=== PATIENT | female | born 1980 | race Caucasian/White ===

== ENCOUNTER → 2017-08-07 | Outpatient (CLI) | payer BC ==
[2017-08-07 08:58] LABS: BASOPHILS % (AUTO) 0.9 % (0.2-1.0); EOSINOPHILS # (AUTO) 0.1 x10^3/uL (0.0-0.2); EOSINOPHILS % (AUTO) 2.1 % (0.9-2.9); HEMATOCRIT 42.2 % (36.0-47.0); HEMOGLOBIN 14.7 g/dL (12.0-16.0); LYMPHOCYTES # (AUTO) 1.6 X10^3/uL (1.3-2.9); LYMPHOCYTES % (AUTO) 28.9 % (21.0-51.0); MEAN CORPUSCULAR HEMOGLOBIN 32.4 pg (27.0-34.0); MEAN CORPUSCULAR HGB CONC 34.9 g/dL (33.0-35.0); MEAN CORPUSCULAR VOLUME 92.7 fL (80.0-100.0); MEAN PLATELET VOLUME 8.1 fL (7.4-11.0); MONOCYTES # (AUTO) 0.3 x10^3/uL (0.3-0.8); MONOCYTES % (AUTO) 6.2 % (0.0-13.0); NEUTROPHILS # (AUTO) 3.4 x10^3/uL (2.2-4.8); NEUTROPHILS % (AUTO) 61.9 % (42.0-75.0); PLATELET COUNT 285 X10^3/uL (150.0-450.0); RED BLOOD COUNT 4.55 X10^6/uL (3.5-5.4); RED CELL DISTRIBUTION WIDTH 12.4 % (11.6-16.5); RETICULOCYTE % 1.23 % (0.8-2.2); WHITE BLOOD COUNT 5.6 X10^3/uL (3.6-10.0)
[2017-08-07 09:11] LABS: ALANINE AMINOTRANSFERASE 23 Units/L (12-78); ALBUMIN 4.4 g/dL (3.4-5.0); ALKALINE PHOSPHATASE 53 Units/L (46-116); AMYLASE 41 Units/L (25-115); ASPARTATE AMINO TRANSFERASE 16 Units/L (15-37); BLOOD UREA NITROGEN 9 mg/dL (7-18); CALCIUM 9.1 mg/dL (8.5-10.1); CHLORIDE 102 mmol/L (98-107); CREATININE 0.76 mg/dL (0.55-1.02); LIPASE 146 Units/L (73-393); SODIUM 140 mmol/L (136-145); TOTAL PROTEIN 7.8 g/dL (6.4-8.2); eGFR BLACK RACES > 60 (>60); eGFR NON BLACK RACES > 60 (>60)
[2017-08-11 06:23] LABS: METHYLMALONIC ACID 0.12 umol/L (0.00-0.40)
== END | disposition home or self-care (01) ==
LOC: LAB 08:25
PROVIDERS: ATTEND Nurse Practitioner Family
DX: D64.89 Other specified anemias (principal); R10.84 Generalized abdominal pain
CPT/HCPCS: 36415; 80053; 82150; 82607; 82615; 82746; 83690; 83918; 85025; 85045; 86256; 86340

== ENCOUNTER 2017-10-08 07:13 | Day surgery (SDC) | payer BC ==
[2017-10-08] MEDS ORDERED: D5 LR 1000 ML 1,000 ML IV ONE (07:32)
[2017-10-08] MEDS ORDERED: XYLOCAINE 2 % (PLAIN) ONE (08:29)
[2017-10-08] MEDS ORDERED: ZOFRAN INJ 4 MG VIAL ONE (08:29)
[2017-10-08] MEDS ORDERED: DIPRIVAN VIAL 20 ML ONE (08:29)
[2017-10-08 10:16] VITALS: BP 113/58
== END 2017-10-08 09:05 | disposition home or self-care (01) ==
LOC: SURG1 07:13
PROVIDERS: ATTEND Internal Medicine Gastroenterology
PROC: 0DB88ZX Excision of Small Intestine, Via Natural or Artificial Opening Endoscopic, Diagnostic (ICD-10-PCS; principal; 2017-10-08 07:30)
PROC: 0DJ08ZZ Inspection of Upper Intestinal Tract, Via Natural or Artificial Opening Endoscopic (ICD-10-PCS; principal; 2017-10-08 07:30)
PROC: 0DB68ZX Excision of Stomach, Via Natural or Artificial Opening Endoscopic, Diagnostic (ICD-10-PCS; principal; 2017-10-08 07:30)
DX: R10.13 Epigastric pain (principal); R11.0 Nausea; R19.7 Diarrhea, unspecified; Z79.1 Long term (current) use of non-steroidal anti-inflammatories (NSAID); K29.60 Other gastritis without bleeding; K20.8 Other esophagitis; R10.84 Generalized abdominal pain
CPT/HCPCS: A4217; J2001; J2405; J3490; J7120

== ENCOUNTER 2025-04-01 12:08 | Observation (INO) ==
[2025-04-01 12:33] VITALS: BMI 22.4
--- NOTE | 2025-04-01 12:36 | DR.FBACK ---
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 States pain starts at left buttock, radiates down left leg and left foot. Left foot feels numb, numbness radiates up to left calf. Pt states she has hx of herniated disk and has had L4 laminectomy with recent steroid injection. Self Treatment fo Chief Complaint: 0915 advil 600mg 1015 extended release tylenol x2 tabs 1100 toradol and kenalog COVID-19 Coronavirus risk:travel/contact w/high risk person: No Has patient experienced Coronavirus symptoms: No Source History Provided: Patient Mode of Arrival Mode of Arrival: Ambulatory Timing Onset of Chief Complaint: 04/01/25 PMH PMH Past Medical History: Yes Past Medical History: GERD Past Medical History Comment: vertigo, panic d/o, insomnia Past Surgical History: Yes Surgical History: , Cholecystectomy and Tonsillectomy Past Surgical History Comment: L4 laminectomy Family History History of Family Medical Conditions: Yes Social History Does patient currently use any type of tobacco product: No Have you used tobacco products in the last 12 months: No Type of Tobacco Use: None Does any household member use tobacco: No Alcohol Use: None Do you use any recreational Drugs:: No Lives With: Family Lives Where: Home Travel Risk Coronavirus risk:travel/contact w/high risk person: No Has patient experienced Coronavirus symptoms: No Infectious screening In the last 2 months have you had wt loss of >10#?: NO Have you had fever, night sweats or hemotysis?: No Have you traveled outside the country in the last 6 months?: No Isolation: Standard PE Vitals Vital Signs: Temp Pulse Resp BP Pulse Ox O2 Del Method 04/01/25 15:40 136/63 04/01/25 15:40 75 99 04/01/25 15:30 66 94 L 04/01/25 15:30 135/65 04/01/25 15:23 81 97 04/01/25 15:23 142/66 04/01/25 15:10 74 100 04/01/25 15:10 117/56 04/01/25 15:00 120/59 04/01/25 14:50 86 99 04/01/25 14:50 118/57 04/01/25 14:45 94 H 100 04/01/25 14:40 117/59 04/01/25 14:40 86 99 04/01/25 14:30 104/57 04/01/25 14:30 104/57 04/01/25 14:30 71 100 04/01/25 14:20 100/52 04/01/25 14:20 100/52 04/01/25 14:20 100/52 04/01/25 14:20 82 99 04/01/25 14:15 83 99 04/01/25 14:10 101/51 04/01/25 14:10 79 98 04/01/25 14:01 103/53 04/01/25 14:01 74 98 04/01/25 14:00 66 98 04/01/25 13:52 118/56 04/01/25 13:52 75 98 04/01/25 13:50 71 97 04/01/25 13:50 74 97 Room Air 04/01/25 13:43 20 04/01/25 13:13 14 04/01/25 12:09 98.2 F 75 14 134/63 96 Room Air ROR Labs Reviewed 04/01/25 12:43 04/01/25 12:43 Laboratory: WBC 9.3 X10^3/uL (3.6-10.0) 04/01/25 12:43 RBC 4.26 X10^6/uL (3.5-5.4) 04/01/25 12:43 Hgb 13.9 g/dL (12.0-16.0) 04/01/25 12:43 Hct 40.4 % (36.0-47.0) 04/01/25 12:43 MCV 94.8 fL (80.0-100.0) 04/01/25 12:43 MCH 32.5 pg (27.0-34.0) 04/01/25 12:43 MCHC 34.3 g/dL (33.0-35.0) 04/01/25 12:43 RDW 13.0 % (11.6-16.5) 04/01/25 12:43 Plt Count 262 X10^3/uL (150.0-450.0) 04/01/25 12:43 MPV 7.5 fL (7.4-11.0) 04/01/25 12:43 Neut % (Auto) 86.1 % (42.0-75.0) H 04/01/25 12:43 Lymph % (Auto) 9.0 % (21.0-51.0) L 04/01/25 12:43 [place] % (Auto) 4.6 % (0.0-13.0) 04/01/25 12:43 Eos % (Auto) 0.1 % (0.9-2.9) L 04/01/25 12:43 Baso % (Auto) 0.2 % (0.2-1.0) 04/01/25 12:43 Neut # (Auto) 8.0 x10^3/uL (2.2-4.8) H 04/01/25 12:43 Lymph # (Auto) 0.8 X10^3/uL (1.3-2.9) L 04/01/25 12:43 [place] # (Auto) 0.4 x10^3/uL (0.3-0.8) 04/01/25 12:43 Eos # (Auto) 0.0 x10^3/uL (0.0-0.2) 04/01/25 12:43 Baso # (Auto) 0.0 X10^3/uL (0.0-0.1) 04/01/25 12:43 Absolute Nucleated RBC 0.0 /100WBC 04/01/25 12:43 Sodium 138 mmol/L (136-145) 04/01/25 12:43 Corrected Sodium 138 mmol/L (136-145) 04/01/25 12:43 Potassium 3.8 mmol/L (3.5-5.1) 04/01/25 12:43 Chloride 101 mmol/L (98-107) 04/01/25 12:43 Carbon Dioxide 24.0 mmol/L (21-32) 04/01/25 12:43 BUN 9 mg/dL (7-18) 04/01/25 12:43 Creatinine 0.75 mg/dL (0.55-1.02) 04/01/25 12:43 Est GFR (MDRD) Af Amer > 60 (>60) 04/01/25 12:43 Est GFR (MDRD) Non-Af > 60 (>60) 04/01/25 12:43 Glucose 115 mg/dL (65-99) H 04/01/25 12:43 Calcium 8.9 mg/dL (8.5-10.1) 04/01/25 12:43 Corrected Calcium TNP 04/01/25 12:43 Total Bilirubin 0.60 mg/dL (0.2-1.0) 04/01/25 12:43 AST 12 Units/L (15-37) L 04/01/25 12:43 ALT 22 Units/L (12-78) 04/01/25 12:43 Alkaline Phosphatase 49 Units/L (46-116) 04/01/25 12:43 Total Protein 7.0 g/dL (6.4-8.2) 04/01/25 12:43 Albumin 4.1 g/dL (3.4-5.0) 04/01/25 12:43 Globulin 2.9 g/dL (2.5-4.5) 04/01/25 12:43 Albumin/Globulin Ratio 1.4 Ratio (1.1-2.1) 04/01/25 12:43 Opioid Opioid Risk Tool Age (Idris box if 16-45): No History of Preadolescent Sexual Abuse: No Total: 0 Total Score Risk Category: Low Risk Copyright: Keyon VILLALBA predicting aberrant behaviors Discharge Plan Diagnosis Discharge Problem: Lower back pain, Left leg weakness, Left leg paresthesias Discharge Plan Patient Disposition: ADMITTED INPATIENT Condition: Stable Orders to Discharge Patient Discharge Orders: Transfer (Routine); Ordered 04/01/25 Ordered By: GLORIA CUELLAR
[2025-04-01 12:53] LABS: BASOPHILS % (AUTO) 0.2 % (0.2-1.0); EOSINOPHILS % (AUTO) 0.1 % (0.9-2.9); HEMATOCRIT 40.4 % (36.0-47.0); HEMOGLOBIN 13.9 g/dL (12.0-16.0); LYMPHOCYTES # (AUTO) 0.8 X10^3/uL (1.3-2.9); MEAN CORPUSCULAR HEMOGLOBIN 32.5 pg (27.0-34.0); MEAN CORPUSCULAR HGB CONC 34.3 g/dL (33.0-35.0); MEAN CORPUSCULAR VOLUME 94.8 fL (80.0-100.0); MEAN PLATELET VOLUME 7.5 fL (7.4-11.0); MONOCYTES # (AUTO) 0.4 x10^3/uL (0.3-0.8); MONOCYTES % (AUTO) 4.6 % (0.0-13.0); NEUTROPHILS % (AUTO) 86.1 % (42.0-75.0); PLATELET COUNT 262 X10^3/uL (150.0-450.0); RED BLOOD COUNT 4.26 X10^6/uL (3.5-5.4); WHITE BLOOD COUNT 9.3 X10^3/uL (3.6-10.0)
[2025-04-01 13:05] LABS: ALANINE AMINOTRANSFERASE 22 Units/L (12-78); ALBUMIN 4.1 g/dL (3.4-5.0); ALKALINE PHOSPHATASE 49 Units/L (46-116); ASPARTATE AMINO TRANSFERASE 12 Units/L (15-37); BLOOD UREA NITROGEN 9 mg/dL (7-18); CALCIUM 8.9 mg/dL (8.5-10.1); CHLORIDE 101 mmol/L (98-107); COR NA(FOR HYPERGLY) 138 mmol/L (136-145); CREATININE 0.75 mg/dL (0.55-1.02); GLUCOSE 115 mg/dL (65-99); POTASSIUM 3.8 mmol/L (3.5-5.1); SODIUM 138 mmol/L (136-145); eGFR NON BLACK RACES > 60 (>60)
[2025-04-01] MEDS: ZOFRAN INJ 4 MG VIAL IVP ONE ×2 (13:07→15:28)
[2025-04-01] MEDS: DILAUDID INJ IVP ONE (13:13)
[2025-04-01] MEDS: SOLU-Medrol 125 MG VIAL IVP ONE (13:15)
[2025-04-01] MEDS: TORADOL 30 MG VIAL IVP ONE (13:22)
--- NOTE | 2025-04-01 13:31 | CT ---
EXAM: CT LUMBAR SPINE WITHOUT IV CONTRAST HISTORY: lower back pain; COMPARISON: None. TECHNIQUE: Axial CT images were obtained through the lumbar spine without IV contrast. Coronal and sagittal reformatted images were included. All CT scans at this facility use dose modulation, iterative reconstruction, and/or weight based dosing when appropriate to reduce radiation dose to as low as reasonably achievable. FINDINGS: Vertebral body heights are maintained. Mild levocurvature centered at L3. No acute lumbar spine fracture or subluxation. Mild multilevel degenerative disc disease and facet hypertrophy. No CT evidence of disc rupture or spinal canal stenosis. Partially visualized enlarged uterus in the retroperitoneum. IMPRESSION: 1. No evidence of acute fracture or subluxation. 2. Partially visualized enlarged uterus. THIS IS AN ELECTRONICALLY VERIFIED FINAL REPORT 04/01/2025 1:27 PM - Electronically signed by Codey Nick MD
[2025-04-01] MEDS: VALIUM INJ IVP ONE (13:54)
[2025-04-01] MEDS ORDERED: DILAUDID INJ IVP PRN (16:46)
[2025-04-01] MEDS ORDERED: ZOFRAN INJ 4 MG VIAL IVP PRN (16:46)
[2025-04-01] MEDS ORDERED: PHENERGAN INJ 25 MG IM PRN (17:05)
[2025-04-01 17:24] LABS: SERUM PREGNANCY TEST, QUAL NEGATIVE <10 mIU/mL
[2025-04-01] MEDS: NS 1,000 ML IV 1,000 ML IV SCH (17:27)
[2025-04-01] MEDS: PERCOCET TAB 5/325 MG PO PRN (17:53)
[2025-04-01] MEDS ORDERED: NEURONTIN CAP 300 MG ONE (19:55)
[2025-04-01] MEDS: VALIUM PO PRN (19:59)
[2025-04-01] MEDS: NEURONTIN CAP 300 MG PO SCH (20:01)
[2025-04-01] MEDS: TORADOL 30 MG VIAL IVP PRN (20:39)
[2025-04-01] MEDS: ZANAFLEX PO PRN (21:51)
[2025-04-02 06:13] LABS: BASOPHILS % (AUTO) 0.1 % (0.2-1.0); HEMATOCRIT 35.7 % (36.0-47.0); HEMOGLOBIN 12.4 g/dL (12.0-16.0); LYMPHOCYTES # (AUTO) 1.2 X10^3/uL (1.3-2.9); MEAN CORPUSCULAR HEMOGLOBIN 32.5 pg (27.0-34.0); MEAN CORPUSCULAR HGB CONC 34.6 g/dL (33.0-35.0); MEAN CORPUSCULAR VOLUME 93.7 fL (80.0-100.0); MEAN PLATELET VOLUME 7.8 fL (7.4-11.0); MONOCYTES # (AUTO) 0.7 x10^3/uL (0.3-0.8); MONOCYTES % (AUTO) 5.9 % (0.0-13.0); NEUTROPHILS # (AUTO) 9.8 x10^3/uL (2.2-4.8); PLATELET COUNT 240 X10^3/uL (150.0-450.0); RED BLOOD COUNT 3.81 X10^6/uL (3.5-5.4); RED CELL DISTRIBUTION WIDTH 12.7 % (11.6-16.5); WHITE BLOOD COUNT 11.7 X10^3/uL (3.6-10.0)
[2025-04-02 06:29] LABS: ALANINE AMINOTRANSFERASE 18 Units/L (12-78); ALBUMIN 3.1 g/dL (3.4-5.0); ALKALINE PHOSPHATASE 39 Units/L (46-116); ASPARTATE AMINO TRANSFERASE 8 Units/L (15-37); BLOOD UREA NITROGEN 8 mg/dL (7-18); CALCIUM 8.6 mg/dL (8.5-10.1); CARBON DIOXIDE 26.6 mmol/L (21-32); CHLORIDE 107 mmol/L (98-107); COR CA(FOR HYPOALB) 9.3 mg/dL (8.5-10.1); COR NA(FOR HYPERGLY) 139 mmol/L (136-145); CREATININE 0.59 mg/dL (0.55-1.02); GLUCOSE 113 mg/dL (65-99); POTASSIUM 4.5 mmol/L (3.5-5.1); SODIUM 139 mmol/L (136-145); TOTAL PROTEIN 5.7 g/dL (6.4-8.2); eGFR NON BLACK RACES > 60 (>60)
[2025-04-02] MEDS: PERCOCET TAB 5/325 MG PO ONE (11:13)
[2025-04-02] MEDS: NexIUM PO SCH (11:14)
[2025-04-02] MEDS: SOLU-Medrol 125 MG VIAL IVP SCH (11:14)
--- NOTE | 2025-04-02 11:23 | DR.H&P ---
H&P History & Physical for Day of: H&P Date: 04/02/25 Chief Complaint Chief Complaint: back pain History of Present Illness History of Present Illness: Ms. Berman is a 44-year-old female with a past medical history of chronic back pain status post laminectomy, GERD presented with worsening lower back pain, mostly on the left side with radiation down her leg. She states she was picking up a basket of laundry when she felt severe, sharp pain on her left side. She has a history of chronic back pain but it has not bothered her until recently. She did get a epidural with Dr. Contreras a week ago. She took some Tylenol, Advil at home with minimal relief. ER workup included CT lumbar which showed mild degenerative disc disease, no acute fracture or changes. She was given Dilaudid, Valium and Solu-Medrol with some pain relief but she was not able to ambulate and was admitted for further management. She was started on gabapentin 300 mg twice daily along with tizanidine and Valium. Dilaudid was not helping so it was switched over to oxycodone-apap as needed along with Toradol IV. She states her pain is slightly better than when she came in but it still very associating if she sits up or stands up to walk. She does report numbness and tingling down her left leg. Labs/imaging reviewed: - WBC 11.7 hemoglobin 12.4 platelet 240 potassium 4.5 creatinine 0.69 glucose 113 - CT lumbar reviewed Plan[facility]. Increase Percocet to 10 mg/325mg. Add Solu-Medrol 60 mg twice daily. Continue gabapentin. Continue Valium and tizanidine as needed. Continue Toradol IV as needed. MRI lumbar ordered for tomorrow. Replace electrolytes as per protocol. Monitor a.m. labs and imaging. Past Medical History Past Medical History: GERD Past Surgical History Surgical History: , Cholecystectomy, Tonsillectomy and Other Social History Does patient currently use any type of tobacco product: No Have you used tobacco products in the last 12 months: No Type of Tobacco Use: None Does any household member use tobacco: No Alcohol Use: None Drug Use: None Medications Home Medications: Home Medications Medication Instructions Recorded Confirmed Type esomeprazole magnesium 40 mg 40 mg PO QDAY 04/01/25 History capsule,delayed release Allergies Allergies Allergy/AdvReac Type Severity Reaction Status Date / Time meperidine (From Demerol) Allergy Unknown Nausea; Verified 04/01/25 12:33 Vomiting Labs 04/02/25 05:28 04/02/25 05:28 Labs: Laboratory WBC 11.7 X10^3/uL (3.6-10.0) H 04/02/25 05:28 RBC 3.81 X10^6/uL (3.5-5.4) 04/02/25 05:28 Hgb 12.4 g/dL (12.0-16.0) 04/02/25 05:28 Hct 35.7 % (36.0-47.0) L 04/02/25 05: MCV 93.7 fL (80.0-100.0) 04/02/25 05:28 MCH 32.5 pg (27.0-34.0) 04/02/25 05: MCHC 34.6 g/dL (33.0-35.0) 04/02/25 05:28 RDW 12.7 % (11.6-16.5) 04/02/25 05:28 Plt Count 240 X10^3/uL (150.0-450.0) 04/02/25 05:28 MPV 7.8 fL (7.4-11.0) 04/02/25 05:28 Neut % (Auto) 84.0 % (42.0-75.0) H 04/02/25 05: Lymph % (Auto) 10.0 % (21.0-51.0) L 04/02/25 05:28 [place] % (Auto) 5.9 % (0.0-13.0) 04/02/25 05:28 Eos % (Auto) 0.0 % (0.9-2.9) L 04/02/25 05:28 Baso % (Auto) 0.1 % (0.2-1.0) L 04/02/25 05:28 Neut # (Auto) 9.8 x10^3/uL (2.2-4.8) H 04/02/25 05:28 Lymph # (Auto) 1.2 X10^3/uL (1.3-2.9) L 04/02/25 05:28 [place] # (Auto) 0.7 x10^3/uL (0.3-0.8) 04/02/25 05:28 Eos # (Auto) 0.0 x10^3/uL (0.0-0.2) 04/02/25 05:28 Baso # (Auto) 0.0 X10^3/uL (0.0-0.1) 04/02/25 05:28 Absolute Nucleated RBC 0.0 /100WBC 04/02/25 05:28 Sodium 139 mmol/L (136-145) 04/02/25 05:28 Corrected Sodium 139 mmol/L (136-145) 04/02/25 05:28 Potassium 4.5 mmol/L (3.5-5.1) 04/02/25 05:28 Chloride 107 mmol/L (98-107) 04/02/25 05:28 Carbon Dioxide 26.6 mmol/L (21-32) 04/02/25 05:28 BUN 8 mg/dL (7-18) 04/02/25 05:28 Creatinine 0.59 mg/dL (0.55-1.02) 04/02/25 05:28 Est GFR (MDRD) Af Amer > 60 (>60) 04/02/25 05:28 Est GFR (MDRD) Non-Af > 60 (>60) 04/02/25 05:28 Glucose 113 mg/dL (65-99) H 04/02/25 05:28 Calcium 8.6 mg/dL (8.5-10.1) 04/02/25 05:28 Corrected Calcium 9.3 mg/dL (8.5-10.1) 04/02/25 05:28 Magnesium 2.0 mg/dL (2.0-2.9) 04/02/25 05:28 Total Bilirubin 0.40 mg/dL (0.2-1.0) 04/02/25 05:28 AST 8 Units/L (15-37) L 04/02/25 05:28 ALT 18 Units/L (12-78) 04/02/25 05:28 Alkaline Phosphatase 39 Units/L (46-116) L 04/02/25 05:28 Total Protein 5.7 g/dL (6.4-8.2) L 04/02/25 05:28 Albumin 3.1 g/dL (3.4-5.0) L 04/02/25 05:28 Globulin 2.6 g/dL (2.5-4.5) 04/02/25 05:28 Albumin/Globulin Ratio 1.2 Ratio (1.1-2.1) 04/02/25 05:28 HCG, Qual Negative <10 mIU/mL 04/01/25 12:43 Review of Systems Constitutional: No Symptoms Reported Eyes: No Symptoms Reported ENT: No Symptoms Reported Respiratory: No Symptoms Reported Cardiovascular: No Symptoms Reported Gastrointestinal: No Symptoms Reported Genitourinary: No Symptoms Reported Musculoskeletal: Back Pain and Leg Pain Skin: No Symptoms Reported Neurological: No Symptoms Reported Physical Exam Vital Signs: Vital Signs Temperature 98.4 F Temperature 98.4 F Temperature 97.8 F Pulse Rate [Right] 79 Pulse Rate [Right] 79 Pulse Rate [Right] 66 Respiratory Rate 18 Respiratory Rate 18 Respiratory Rate 18 Respiratory Rate 18 Respiratory Rate 18 Respiratory Rate 18 Respiratory Rate 18 Respiratory Rate 18 Respiratory Rate 18 Blood Pressure [Right Arm] 112/57 Blood Pressure [Right Arm] 112/57 Blood Pressure [Right Arm] 104/52 O2 Sat by Pulse Oximetry 97 O2 Sat by Pulse Oximetry 97 O2 Sat by Pulse Oximetry 97 Oriented: Normal Eyes: Normal Throat: Normal Respiratory: Clear Throughout Cardiovascular: Normal Auscultation: Bowel Sounds: Normal Palpation: Normal Tenderness: Normal Skin: Normal Musculoskeletal: Back:Lumbar, Back:Paraspinous and Motor Deficit Psychiatric: Normal Mood Description: Calm Affect: Normal Speech Pattern: Clear Assessment/Plan (1) Lower back pain: Status: Acute (2) Left leg paresthesias: Status: Acute (3) Spasm of muscle of lower back: Status: Acute (4) History of gastroesophageal reflux (GERD): Status: Chronic (5) Lumbar back pain with radiculopathy affecting left lower extremity: Status: Chronic Review H&P Reviewed: Yes Patient was examined?: Yes
[2025-04-02] MEDS: LIDODERM 5% PATCH TD SCH (14:14)
[2025-04-02] MEDS: PERCOCET TAB 5/325 MG PO PRN (16:28)
[2025-04-03] MEDS: COLACE CAP 100 MG PO PRN (00:31)
[2025-04-03] MEDS: MILK OF MAGNESIA PO PRN (00:31)
[2025-04-03 04:53] LABS: BASOPHILS % (AUTO) 0 % (0.2-1.0); HEMATOCRIT 33.7 % (36.0-47.0); HEMOGLOBIN 11.7 g/dL (12.0-16.0); LYMPHOCYTES # (AUTO) 0.8 X10^3/uL (1.3-2.9); LYMPHOCYTES % (AUTO) 6.1 % (21.0-51.0); MEAN CORPUSCULAR HEMOGLOBIN 32.7 pg (27.0-34.0); MEAN CORPUSCULAR HGB CONC 34.8 g/dL (33.0-35.0); MEAN CORPUSCULAR VOLUME 93.8 fL (80.0-100.0); MEAN PLATELET VOLUME 8.1 fL (7.4-11.0); MONOCYTES # (AUTO) 0.4 x10^3/uL (0.3-0.8); MONOCYTES % (AUTO) 2.7 % (0.0-13.0); NEUTROPHILS # (AUTO) 12.2 x10^3/uL (2.2-4.8); NEUTROPHILS % (AUTO) 91.2 % (42.0-75.0); PLATELET COUNT 236 X10^3/uL (150.0-450.0); RED BLOOD COUNT 3.59 X10^6/uL (3.5-5.4); RED CELL DISTRIBUTION WIDTH 12.6 % (11.6-16.5); WHITE BLOOD COUNT 13.4 X10^3/uL (3.6-10.0)
[2025-04-03 05:01] LABS: ALANINE AMINOTRANSFERASE 20 Units/L (12-78); ALBUMIN 3.1 g/dL (3.4-5.0); ALKALINE PHOSPHATASE 38 Units/L (46-116); ASPARTATE AMINO TRANSFERASE 9 Units/L (15-37); BLOOD UREA NITROGEN 15 mg/dL (7-18); CALCIUM 8.3 mg/dL (8.5-10.1); CARBON DIOXIDE 26.7 mmol/L (21-32); CHLORIDE 105 mmol/L (98-107); COR NA(FOR HYPERGLY) 139 mmol/L (136-145); CREATININE 0.72 mg/dL (0.55-1.02); GLUCOSE 135 mg/dL (65-99); POTASSIUM 4.3 mmol/L (3.5-5.1); SODIUM 138 mmol/L (136-145); TOTAL PROTEIN 5.6 g/dL (6.4-8.2); eGFR NON BLACK RACES > 60 (>60)
[2025-04-03 05:16] LABS: PLATELET MORPHOLOGY COMMENT NORMAL (NORMAL)
[2025-04-03] MEDS: ZANAFLEX PO SCH (08:59)
[2025-04-03] MEDS: LYRICA CAP 150 mg PO SCH (08:59)
[2025-04-03] MEDS: VALIUM INJ IVP SCH (09:02)
[2025-04-03] MEDS: RELISTOR SC ONE (09:03)
[2025-04-03] MEDS: PERCOCET TAB 5/325 MG PO SCH (11:17)
[2025-04-03] MEDS: VALIUM INJ IVP ONE ×2 (11:47→12:10)
[2025-04-03] MEDS ORDERED: MULTIHANCE INJ VIAL ONE (12:17)
--- NOTE | 2025-04-03 16:50 | NOTE.SOAP ---
Soap Note Note for Day of Date of Exam: 04/03/25 Subjective Data Subjective Data: Patient seen with nurses and family at bedside. About get a shower. Still with numbness, tingling, and pain radiating from left buttock to left hamstring and down to left foot. About half of her left foot is numb and tingling. She has been able to ambulate, urinate, defecate. Does report some feelings of constipation. She is swollen but has been on IV fluids since admission. P.o. intake has been good. Pain control is an adequate. Objective Data Objective Data: Well-developed, well-nourished female in no acute distress. Hearing intact conversation, EOMI, cervical range of motion full, head NCAT. Heart regular rate and rhythm with clear lungs. Belly is soft and nontender with bowel sounds present. Range of motion of her lower extremities is appropriate. She is numb along the lateral left lower extremity to the knee. DP and PT pulses are 2+ and equal bilaterally. Lower back muscles are tense with the left greater than the right. Assessment Assessment: 1. Lumbar disc disease with lumbar canal stenosis and radiculopathy. 2. Left-sided sciatica, chronic. 3. Mild anemia. 4. Signs of steroid use, acute-leukocytosis and hyperglycemia. Plan Plan: Stop IV fluids. Regular diet. MRI pending for today. Will contact Dr. Contreras once we get results versus referral to surgeon. Ambulate as tolerated. Stop gabapentin and start Lyrica 150 3 times daily. Make Toradol and Percocet scheduled. Continue Zanaflex and also make it scheduled. Continue Solu-Medrol injections for now. Continue Lidoderm patches.
[2025-04-03] MEDS: VALIUM INJ ONE (17:39)
[2025-04-03 23:16] VITALS: RESP 18
[2025-04-04 06:23] LABS: BASOPHILS % (AUTO) 0.2 % (0.2-1.0); HEMATOCRIT 38.5 % (36.0-47.0); HEMOGLOBIN 13.1 g/dL (12.0-16.0); LYMPHOCYTES # (AUTO) 0.8 X10^3/uL (1.3-2.9); LYMPHOCYTES % (AUTO) 6.5 % (21.0-51.0); MEAN CORPUSCULAR HGB CONC 33.9 g/dL (33.0-35.0); MEAN CORPUSCULAR VOLUME 94.3 fL (80.0-100.0); MONOCYTES # (AUTO) 0.3 x10^3/uL (0.3-0.8); MONOCYTES % (AUTO) 2.4 % (0.0-13.0); NEUTROPHILS # (AUTO) 11.1 x10^3/uL (2.2-4.8); NEUTROPHILS % (AUTO) 90.9 % (42.0-75.0); PLATELET COUNT 255 X10^3/uL (150.0-450.0); RED BLOOD COUNT 4.08 X10^6/uL (3.5-5.4); RED CELL DISTRIBUTION WIDTH 13.1 % (11.6-16.5); WHITE BLOOD COUNT 12.3 X10^3/uL (3.6-10.0)
[2025-04-04 06:33] LABS: ALANINE AMINOTRANSFERASE 23 Units/L (12-78); ALBUMIN 3.5 g/dL (3.4-5.0); ALKALINE PHOSPHATASE 41 Units/L (46-116); ASPARTATE AMINO TRANSFERASE 6 Units/L (15-37); BLOOD UREA NITROGEN 13 mg/dL (7-18); CALCIUM 8.9 mg/dL (8.5-10.1); CARBON DIOXIDE 25.4 mmol/L (21-32); CHLORIDE 105 mmol/L (98-107); COR NA(FOR HYPERGLY) 139 mmol/L (136-145); CREATININE 0.62 mg/dL (0.55-1.02); GLUCOSE 117 mg/dL (65-99); POTASSIUM 4.3 mmol/L (3.5-5.1); SODIUM 139 mmol/L (136-145); TOTAL PROTEIN 6.4 g/dL (6.4-8.2); eGFR NON BLACK RACES > 60 (>60)
--- NOTE | 2025-04-04 06:48 | MRI ---
EXAM: LUMBAR W&W/O CON HISTORY: LOW BACK PAIN; COMPARISON: 04/01/2025, 02/12/2023 TECHNIQUE: Multiplanar, multisequence MRI of the lumbar spine obtained without and with IV contrast. FINDINGS: The conus terminates normally. The visualized cord signal is unremarkable. Lumbar levocurvature. Marrow signal is benign. No acute fracture. Multilevel disc desiccation. Moderate multilevel facet arthropathy. No suspicious abnormal postcontrast enhancement. No acute soft tissue abnormality. Partially visualized, probable fibroid uterus. Right renal cyst. T12-L1: No significant spinal canal or neuroforaminal stenosis. L1-L2: No significant spinal canal or neuroforaminal stenosis. L2-L3: No significant spinal canal or neuroforaminal stenosis. L3-L4: No significant spinal canal or neuroforaminal stenosis. L4-L5: Mild broad-based disc bulge without significant spinal canal or neural foraminal stenosis. L5-S1: Left paracentral disc extrusion which abuts the transiting nerve root. No significant spinal canal stenosis. Mild left neural foraminal narrowing. IMPRESSION: Left paracentral disc extrusion at L5-S1. THIS IS AN ELECTRONICALLY VERIFIED FINAL REPORT 04/04/2025 6:44 AM - Electronically signed by Dmitri Martines MD
[2025-04-04 07:04] LABS: PLATELET MORPHOLOGY COMMENT NORMAL (NORMAL)
[2025-04-04] MEDS: RELISTOR SC PRN (10:19)
[2025-04-04 11:16] VITALS: BP 144/67; PULSE 62; TEMP 98.3; O2SAT 98
--- NOTE | 2025-04-04 15:19 | PCM.DCPLAN ---
DISCHARGE SUMMARY Admission Date Date of Admission: 04/01/25 Discharge Date Discharge Date: 04/04/25 Admission Diagnoses (1) Lower back pain: Status: Acute (2) Left leg paresthesias: Status: Acute (3) Spasm of muscle of lower back: Status: Acute (4) History of gastroesophageal reflux (GERD): Status: Chronic (5) Lumbar back pain with radiculopathy affecting left lower extremity: Status: Chronic Discharge Medications Discharge Medications: Home Medication List esomeprazole magnesium 40 mg capsule,delayed release 40 mg PO QDAY 04/01/25 [History] Prescriptions: Hospital Course Vital Signs: Vital Signs Temperature 98.0 F Pulse Rate [Right] 60 Respiratory Rate 18 Respiratory Rate 18 Respiratory Rate 18 Respiratory Rate 18 Blood Pressure [Right Arm] 122/58 O2 Sat by Pulse Oximetry 95 Latest Lab Results: Laboratory Last Values WBC 12.3 X10^3/uL (3.6-10.0) H 04/04/25 05:42 RBC 4.08 X10^6/uL (3.5-5.4) 04/04/25 05:42 Hgb 13.1 g/dL (12.0-16.0) 04/04/25 05:42 Hct 38.5 % (36.0-47.0) 04/04/25 05:42 MCV 94.3 fL (80.0-100.0) 04/04/25 05:42 MCH 32.0 pg (27.0-34.0) 04/04/25 05:42 MCHC 33.9 g/dL (33.0-35.0) 04/04/25 05:42 RDW 13.1 % (11.6-16.5) 04/04/25 05:42 Plt Count 255 X10^3/uL (150.0-450.0) 04/04/25 05:42 Plt Count Comment Adequate (ADEQUATE) 04/04/25 05:42 MPV 8.0 fL (7.4-11.0) 04/04/25 05:42 Neut % (Auto) 90.9 % (42.0-75.0) H 04/04/25 05:42 Lymph % (Auto) 6.5 % (21.0-51.0) L 04/04/25 05:42 [place] % (Auto) 2.4 % (0.0-13.0) 04/04/25 05:42 Eos % (Auto) 0.0 % (0.9-2.9) L 04/04/25 05:42 Baso % (Auto) 0.2 % (0.2-1.0) 04/04/25 05:42 Neut # (Auto) 11.1 x10^3/uL (2.2-4.8) H 04/04/25 05:42 Lymph # (Auto) 0.8 X10^3/uL (1.3-2.9) L 04/04/25 05:42 [place] # (Auto) 0.3 x10^3/uL (0.3-0.8) 04/04/25 05:42 Eos # (Auto) 0.0 x10^3/uL (0.0-0.2) 04/04/25 05:42 Baso # (Auto) 0.0 X10^3/uL (0.0-0.1) 04/04/25 05:42 Absolute Nucleated RBC 0.0 /100WBC 04/04/25 05:42 Total Counted 100 04/04/25 05:42 Neutrophils % (Manual) 91 % (39-76) H 04/04/25 05:42 Lymphocytes % (Manual) 9 % (13-43) L 04/04/25 05:42 Monocytes % (Manual) 1 % (4-9) L 04/03/25 04:09 Plt Morphology Comment Normal (NORMAL) 04/04/25 05:42 RBC Morphology Normal (NORMAL) 04/04/25 05:42 Sodium 139 mmol/L (136-145) 04/04/25 05:42 Corrected Sodium 139 mmol/L (136-145) 04/04/25 05:42 Potassium 4.3 mmol/L (3.5-5.1) 04/04/25 05:42 Chloride 105 mmol/L (98-107) 04/04/25 05:42 Carbon Dioxide 25.4 mmol/L (21-32) 04/04/25 05:42 BUN 13 mg/dL (7-18) 04/04/25 05:42 Creatinine 0.62 mg/dL (0.55-1.02) 04/04/25 05:42 Est GFR (MDRD) Af Amer > 60 (>60) 04/04/25 05:42 Est GFR (MDRD) Non-Af > 60 (>60) 04/04/25 05:42 Glucose 117 mg/dL (65-99) H 04/04/25 05:42 Calcium 8.9 mg/dL (8.5-10.1) 04/04/25 05:42 Corrected Calcium TNP 04/04/25 05:42 Magnesium 2.0 mg/dL (2.0-2.9) 04/02/25 05:28 Total Bilirubin 0.40 mg/dL (0.2-1.0) 04/04/25 05:42 AST 6 Units/L (15-37) L 04/04/25 05:42 ALT 23 Units/L (12-78) 04/04/25 05:42 Alkaline Phosphatase 41 Units/L (46-116) L 04/04/25 05:42 Total Protein 6.4 g/dL (6.4-8.2) 04/04/25 05:42 Albumin 3.5 g/dL (3.4-5.0) 04/04/25 05:42 Globulin 2.9 g/dL (2.5-4.5) 04/04/25 05:42 Albumin/Globulin Ratio 1.2 Ratio (1.1-2.1) 04/04/25 05:42 HCG, Qual Negative <10 mIU/mL 04/01/25 12:43 Hospital Course: Patient admitted over the weekend due to worsening back pain thought to be associated with moving laundry in her closet. She was having radiculopathy down the left buttocks, hamstring, lateral lower leg, and lateral foot. She still has numbness but the shooting pains have greatly subsided. She did have an epidural steroid injection a little over a week ago with local IPM but did not have any signs of hematoma or abscess formation on her MRI while admitted. Plan was to discharge home on her current medications but converted to oral with contact to be made by her IPM for follow-up.
== END 2025-04-04 10:50 | disposition home or self-care (01) ==
LOC: MED/SURG 12:08 → ER 12:08 → MED/SURG 16:19
PROVIDERS: ADMIT Internal Medicine; ATTEND Family Medicine
DX: K21.9 Gastro-esophageal reflux disease without esophagitis; M51.17 Intervertebral disc disorders with radiculopathy, lumbosacral region; M54.42 Lumbago with sciatica, left side; M48.061 Spinal stenosis, lumbar region without neurogenic claudication; D64.89 Other specified anemias; R53.1 Weakness; M62.830 Muscle spasm of back; Z98.890 Other specified postprocedural states; R20.2 Paresthesia of skin; R42 Dizziness and giddiness